=== PATIENT | male | born 1960 | race Caucasian/White ===

== ENCOUNTER 2022-12-18 18:55 | Emergency (ER) | payer MEDICAID ==
[~2022-12-18] VITALS: Ht 167.6 cm; Wt 87.0 kg
[2022-12-18] VITALS (12 sets, daily range): BP systolic 128–154; BP diastolic 80–130
[2022-12-18 20:51] LABS: BASO% 0.4 % (0-3); EOS% 2.1 % (0-8); HEMATOCRIT 43.6 % (39.0-50.0); HEMOGLOBIN 14.7 g/dl (14.0-18.0); IMMATURE GRANULOCYTES 0.2 % (0.0-5.0); LYMPH% 31.9 % (15-41); MEAN CELL VOLUME 89.5 fL CALC (80.0-100.0); MEAN CORPUSCULAR HGB 30.2 pG CALC (26.0-32.0); MEAN CORPUSCULAR HGB CONC 33.7 g/dL CAL (32.0-36.0); MONO% 10.1 % (2-13); NEUT# 5.73 thou/uL (1.82-7.42); NEUT% 55.3 % (42-76); RED BLOOD COUNT 4.87 mill/uL (4.70-6.10); RED CELL DISTRI WIDTH 12.9 % (11.5-15.5)
[2022-12-18 20:56] LABS: ALBUMIN 4.4 g/dL (3.2-5.0); ALKALINE PHOSPHATASE 66 u/l (38-126); ANION GAP 21 (6-22 (CALC)); BILIRUBIN, TOTAL 0.6 mg/dL (0.2-1.3); BUN 16 mg/dL (8-23); BUN/CREATININE RATIO 17 (12-20 (CALC)); CARBON DIOXIDE 18 mmol/l (22-30); CHLORIDE 105 mmol/l (95-108); ETHYL ALCOHOL 209 mg/dl (0-30); GFR FOR AFR.AMER. > 60 ML/MIN (>=60 (CALC)); GFR OTHER RACES > 60 ML/MIN (>=60 (CALC)); POTASSIUM 3.6 mmol/l (3.5-5.1); SGOT/AST 64 u/l (19-48); SODIUM 140 mmol/l (137-146); TOTAL PROTEIN 8.1 g/dL (6.3-8.2)
[2022-12-18 21:25] LABS: INTERNATIONAL NORMALIZED RATIO 1.1 RATIO (0.7-1.3); PROTHROMBIN TIME 10.4 SECONDS (9.0-12.5)
[2022-12-18] MEDS ORDERED: AMLODIPINE BESYL5 MG PO (22:07)
[2022-12-18] MEDS ORDERED: ZOLOFT50 MG PO (22:08)
[2022-12-18] MEDS ORDERED: EZETIMIBE10 MG (22:08)
[2022-12-18] MEDS ORDERED: ISOSORBIDE MONO60 MG PO (22:08)
[2022-12-18] MEDS ORDERED: BAYER ASPIRIN E81 MG PO (22:09)
[2022-12-18] MEDS ORDERED: COLESTIPOL1 GM PO (22:09)
[2022-12-18] MEDS ORDERED: LIPITOR80 M1 PO (22:09)
== END 2022-12-18 22:34 | disposition short-term general hospital (02) ==
LOC: ED 18:55
PROVIDERS: Family Medicine
DX: S06.6X1A Traumatic subarachnoid hemorrhage with loss of consciousness of 30 minutes or less, initial encounter (principal); S01.01XA Laceration without foreign body of scalp, initial encounter; S01.511A Laceration without foreign body of lip, initial encounter; F10.121 Alcohol abuse with intoxication delirium; I10 Essential (primary) hypertension; I25.2 Old myocardial infarction; Y90.7 Blood alcohol level of 200-239 mg/100 ml; W01.198A Fall on same level from slipping, tripping and stumbling with subsequent striking against other object, initial encounter; Z95.1 Presence of aortocoronary bypass graft